=== PATIENT | male | born 1985 | race African-American/Black ===

== ENCOUNTER 2021-03-21 21:18 | Emergency (ER) | payer OTHER ==
[~2021-03-21] VITALS: Ht 188 cm; Wt 77.1 kg
--- NOTE | 2021-03-21 21:50 | NUR ---
Patient walked into ER c/o being irratable, fatigue that started 2 days ago after quiting smoking 4 days ago.
--- NOTE | 2021-03-21 21:57 | NUR ---
Dr. Malcolm on bedside for MSE.
[2021-03-21 22:31] LABS: HEMATOCRIT 30.4 % (36.7-47.1); MEAN CORPUSCULAR HEMOGLOBIN 27.7 uug (23.8-33.4); MEAN CORPUSCULAR VOLUME 83.6 fL (73.0-96.2); PLATELET COUNT (AUTO) 115 K/uL (152-348)
[2021-03-21 22:42] LABS: BILIRUBIN,DIRECT 0.1 mg/dL (0.0-0.2); BILIRUBIN,TOTAL 0.3 mg/dL (0.2-1.0); CREATININE 1.1 mg/dL (0.6-1.3); POTASSIUM 3.9 mmol/L (3.5-5.1); TOTAL PROTEIN, SERUM 9.2 g/dL (6.4-8.2)
--- NOTE | 2021-03-21 22:47 | NUR ---
Back from CT via wheelchair accompanied by technology director Deuce.
[2021-03-21 23:35] LABS: BAND % (MANUAL) 9 % (0-10); LYMPHOCYTES % (MANUAL) 15 % (20-40); MONOCYTES % (MANUAL) 6 % (2-10); NEUTROPHILS % (MANUAL) 70 % (42-75)
--- NOTE | 2021-03-22 00:20 | NUR ---
Dr. Malcolm at bedside.
--- NOTE | 2021-03-22 00:40 | NUR ---
Patient discharged to home in stable condition. Written and verbal after care instructions given. Patient verbalizes understanding of instructions. Stressed follow up or return to ER for worsening s/s. Patient ambulated from the ER with steady gait. All belongings with patient.
[2021-03-22 00:42] VITALS: BP 108/68
== END 2021-03-22 00:40 | disposition home or self-care (01) ==
LOC: ER 21:18
DX: R50.9 Fever, unspecified (principal); R10.9 Unspecified abdominal pain; Z20.822 Contact with and (suspected) exposure to COVID-19; F17.210 Nicotine dependence, cigarettes, uncomplicated
CPT/HCPCS: 36415; 70030-TC; 70450; 71045; 83605; 85025; 87040; 87400; A4663

== ENCOUNTER 2021-03-23 20:40 | Inpatient (IN) | payer OTHER ==
[~2021-03-23] VITALS: Ht 188 cm; Wt 68.2 kg
[2021-03-23] MEDS ORDERED: IV NORMAL SALINE 1000 ML BAG IV ONE (21:15)
[2021-03-23] MEDS ORDERED: ONDANSETRON 4 MG/2 ML VIAL IV ONE (21:15)
[2021-03-23 21:42] LABS: HEMATOCRIT 29.6 % (36.7-47.1); MEAN CORPUSCULAR HEMOGLOBIN 28.2 uug (23.8-33.4); MEAN CORPUSCULAR VOLUME 84.1 fL (73.0-96.2); PLATELET COUNT (AUTO) 112 K/uL (152-348)
[2021-03-23] MEDS ORDERED: ONDANSETRON 4 MG/2 ML VIAL ONE (21:46)
[2021-03-23 21:47] LABS: CREATININE 1.3 mg/dL (0.6-1.3); POTASSIUM 4.1 mmol/L (3.5-5.1)
[2021-03-23 21:52] LABS: BILIRUBIN,DIRECT 0.1 mg/dL (0.0-0.2); BILIRUBIN,TOTAL 0.4 mg/dL (0.2-1.0)
[2021-03-23] MEDS ORDERED: AZITHROMYCIN IV 500 MG in IV DEXTROSE 5% 250 ML IV SCH (22:45)
[2021-03-23] MEDS ORDERED: CEFTRIAXONE 1 G in IV DEXTROSE 5% 50 ML IV ONE (22:45)
[2021-03-23] MEDS ORDERED: IV NS 1000 ML 1,000 ML IV ONE (22:45)
[2021-03-23] MEDS ORDERED: HYDROMORPHONE 1 MG/1 ML DISP.SYRIN IV ONE (23:00)
[2021-03-23] MEDS ORDERED: CEFTRIAXONE /D5W 50ML IVPB **ER PYXIS IV ONE (23:02)
--- NOTE | 2021-03-23 23:03 | NUR ---
Called [facility] to page Tamir Perera NP.
[2021-03-23] MEDS ORDERED: SULFAMETHOXAZOL/TRIMETHOPRI IV 15 ML in IV DEXTROSE 5% 250 ML IV ONE (23:15)
[2021-03-23] MEDS ORDERED: HYDROMORPHONE 1 MG/1 ML DISP.SYRIN ONE (23:16)
--- NOTE | 2021-03-23 23:23 | NUR ---
Dr. Rao panel call, speaking with Tamir Perera, accpeted for admission.
--- NOTE | 2021-03-23 23:23 | NUR ---
Called for bed, given [phone]
[2021-03-23] MEDS ORDERED: AZITHROMYCIN 500MG/ D5W 250ML IVPB **ER PYXIS ONLY IV ONE (23:33)
[2021-03-24] MEDS ORDERED: IV NS 1000 ML 1,000 ML IV PRN (00:15)
[2021-03-24] MEDS ORDERED: MAGNESIUM HYDROXIDE 30 ML LIQUID UDC PO PRN (00:15)
[2021-03-24] MEDS ORDERED: SULFAMETHOXAZOLE/TRIMETHOPRIM 10 ML VIAL IV ONE (00:45)
--- NOTE | 2021-03-24 01:04 | NUR ---
Gave report to Juhi ASHER
[2021-03-24 01:37] VITALS: BP 111/72
[2021-03-24] MEDS: HYDROCODONE/APAP 5-325MG TABLET PO PRN ×4 (01:39→23:56)
[2021-03-24] MEDS: ACETAMINOPHEN 325 MG TABLET PO PRN ×2 (01:39→23:54)
[2021-03-24] MEDS: ENOXAPARIN SODIUM 40 MG/0.4 ML DISP.SYRIN SQ SCH ×2 (01:40→20:26)
--- NOTE | 2021-03-24 01:55 | NUR ---
Received patient on unit at 01:15AM via [employer]. AOX4. Established nurse-patient rapport. Oriented patient to room and call light button. IV site is on L AC 20gauge, started on 0.9% NS running at 75/mls. On room air, saturating at 95%. Patient attached to cardiac monitor technician, showing normal sinus rhythm. Patient came in with fever, having temperature of 102.2, tylenol was given and cooling measure was initiated. Patient denies SOB or dizziness but reports moderate back pain, Milo 5-325mg, was given and tolerated. Safety and comfort measures initiated. Will continue to monitor.
[2021-03-24 04:03] VITALS: BP 96/44
[2021-03-24] MEDS: PANTOPRAZOLE SODIUM 40 MG TABLET.DR PO SCH (06:16)
--- NOTE | 2021-03-24 06:41 | NUR ---
Pt slept intermittently through the night. All comfort measures were given to lower down fever, temperature currently at 99.7. from previous temperature of 101. IV site remains patent and intact. On cardiac monitor technician, showing normal sinus rhythm with HR of 87bpm. Will endorse to day shift nurse.
--- NOTE | 2021-03-24 08:00 | NUR ---
AWAKE ALERT AND VERBALLY RESPONSIVE PLEASANT AND ABLE TO COMMUNICATE NEEDS. CONTINUE WITH TELE MONITORING ST ON MONITOR
[2021-03-24 08:24] LABS: HEMATOCRIT 29.3 % (36.7-47.1); MEAN CORPUSCULAR VOLUME 84.5 fL (73.0-96.2); PLATELET COUNT (AUTO) 112 K/uL (152-348)
[2021-03-24] MEDS ORDERED: AZITHROMYCIN IV 500 MG in IV DEXTROSE 5% 250 ML IV SCH (09:00)
[2021-03-24] MEDS ORDERED: CEFTRIAXONE 1 G in IV DEXTROSE 5% 50 ML IV SCH ×2 (09:00→23:00)
[2021-03-24 09:07] LABS: CREATININE 1.3 mg/dL (0.6-1.3); MAGNESIUM 2.1 mg/dL (1.8-2.4)
[2021-03-24] MEDS ORDERED: ALBUTEROL SULFATE 2.5 MG/3 ML NEBU NEB PRN (10:30)
[2021-03-24 10:59] VITALS: BP 110/63
--- NOTE | 2021-03-24 11:00 | NUR ---
SEEN BY DR BROWER AND DR RAMSEY SEE NOTES
[2021-03-24] MEDS: IV D5/ 0.9% NACL 1,000 ML IV SCH ×2 (11:25→20:32)
[2021-03-24] MEDS: CLOTRIMAZOLE 10 MG TROCHE MM SCH ×3 (13:06→20:25)
[2021-03-24 13:26] LABS: *BILIRUBIN,URIN NEGATIVE (NEGATIVE); *BLOOD, URINE NEGATIVE (NEGATIVE); *CLARITY,URINE CLEAR (CLEAR); *COLOR,URINE LIGHT YELLOW (YELLOW); *KETONES,URINE NEGATIVE (NEGATIVE); *UROBILINOGEN,URINE 0.2 E.U./dl (NORMAL); LEUKOCYTE ESTERASE ,URINE NEGATIVE (NEGATIVE); NITRITE, URINE NEGATIVE (NEGATIVE); PH,URINE 6.5 (5.0-8.0); UGLUCOSE NEGATIVE (NEGATIVE)
[2021-03-24 14:55] VITALS: BP 107/72
--- NOTE | 2021-03-24 18:16 | NUR ---
PATIENT REMAINS AFEBRILE ALL DAY, STILL WITH ON AND OFF MILDLY PRODUCTIVE COUGH. SPUTUM C/S AND PCR AAA SENT TO LAB. REMAINS SR/ ST ON MONITOR. CONTINUE PAIN MANAGEMENT NORCO FOR BACK PAIN
--- NOTE | 2021-03-24 19:30 | NUR ---
Received patient lying on bed. AOX4. No acute distress noted at this time. Patient is afebrile. IV site on L AC intact and patent with no signs of redness or swelling noted. Safety and comfort measures initiated.
[2021-03-24 20:18] VITALS: BP 106/63
--- NOTE | 2021-03-24 22:15 | NUR ---
Patient picked up by X-ray auto repair technician, Kam, for CT-Chest X-ray without contrast.
[2021-03-24] MEDS ORDERED: ZOLPIDEM 5 MG TABLET PO PRN (22:30)
--- NOTE | 2021-03-24 22:35 | NUR ---
Patient is back from X-ray unit.
[2021-03-24] MEDS: AZITHROMYCIN IV 500 MG in IV DEXTROSE 5% 250 ML IV SCH (23:55)
[2021-03-25] MEDS ORDERED: CEFTRIAXONE 1 G in IV DEXTROSE 5% 50 ML IV SCH
[2021-03-25 00:11] VITALS: BP 109/67
[2021-03-25 04:27] VITALS: BP 110/61
[2021-03-25] MEDS: PANTOPRAZOLE SODIUM 40 MG TABLET.DR PO SCH (06:13)
[2021-03-25] MEDS: IV D5/ 0.9% NACL 1,000 ML IV SCH (06:13)
--- NOTE | 2021-03-25 06:40 | NUR ---
Patients oxygen rechecked, satting 92% on RA. Placed on 2L NC
--- NOTE | 2021-03-25 07:08 | NUR ---
Pt slept through the night. Tylenol was given to relieve elevated temperature, pt now afebrile. [place] 5-325mg PO was given to relieve reported upper back pain, pt tolerated well. On user support analyst supervisor, showing normal sinus rhythm. On O2 2L, saturating at 99%. IV on L AC is patent and intact, infusing D5/0.9%NaCl 1000ml, running at 100ml/hr. All needs attended to and met. Will endorse to day shift nurse.
[2021-03-25 07:52] LABS: BILIRUBIN,TOTAL 0.3 mg/dL (0.2-1.0); CREATININE 1.1 mg/dL (0.6-1.3); MAGNESIUM 2.4 mg/dL (1.8-2.4); PHOSPHOROUS 2.3 mg/dL (2.5-4.9); POTASSIUM 3.7 mmol/L (3.5-5.1); TOTAL PROTEIN, SERUM 8.4 g/dL (6.4-8.2)
[2021-03-25 08:29] LABS: HEMATOCRIT 27.4 % (36.7-47.1); MEAN CORPUSCULAR HEMOGLOBIN 27.7 uug (23.8-33.4); MEAN CORPUSCULAR VOLUME 83.8 fL (73.0-96.2); PLATELET COUNT (AUTO) 120 K/uL (152-348)
[2021-03-25] MEDS ORDERED: CEFTRIAXONE 2 G VIAL IM SCH ×2 (09:00)
[2021-03-25 09:15] VITALS: BP 110/62
--- NOTE | 2021-03-25 09:45 | NUR ---
Received pt. Pt is currently awake in bed. a/o x 4 saturating 99% on 2L NC, sinus on telemetry. Pt is cooperative with care, ambulates to bathroom, IV is intact and patent. PCR for Covid still pending. Pt takes medications as directed. Pt's current vitals BP 110/62, HR 90, Temp 100.5. Acetaminophen administered. All comfort measures provided, call light in reach. Will continue to monitor pt.
[2021-03-25] MEDS: CLOTRIMAZOLE 10 MG TROCHE MM SCH ×4 (10:03→20:31)
[2021-03-25] MEDS: CEFTRIAXONE 2 G in IV DEXTROSE 5% 100 ML IV SCH (10:03)
[2021-03-25] MEDS: ACETAMINOPHEN 325 MG TABLET PO PRN ×2 (10:53→17:57)
[2021-03-25 11:02] VITALS: BP 119/65
[2021-03-25 15:07] VITALS: BP 114/58
[2021-03-25] MEDS ORDERED: NEUTRA PHOS PACKET PO ONE (16:15)
[2021-03-25] MEDS ORDERED: SULFAMETHOXAZOL/TRIMETHOPRI IV 20 ML in IV DEXTROSE 5% 500 ML IV SCH ×3 (17:00→22:00)
--- NOTE | 2021-03-25 17:45 | NUR ---
Titrated pt from 2 L to Room air. Pt is saturating 97% on pulse ox. Pt is shivering, temperature of 100.0, administered acetaminophen. Will reassess pt.
--- NOTE | 2021-03-25 18:37 | NUR ---
Pt is currently stable on room air, saturating in the mid-high 90s. NO signs of acute distress or discomfort. Provided comfort measures, all medications tolerated well. Sent in respiratory pathogen specimen to lab. Reassessed pt's temperature, now trending downward at 99.7F. Will endorse to propulsion systems engineer RN to reassess and monitor.
--- NOTE | 2021-03-25 19:30 | NUR ---
RECEIVED PT AWAKE, ALERT AND ORIENTEDX4. PT ON ROOM AIR. PT IN NO ACUTE DISTRESS. IV INTACT. SAFETY AND COMFORT PROVIDED. WILL CONTINUE TO MONITOR.
[2021-03-25 20:27] VITALS: BP 113/62
--- NOTE | 2021-03-25 23:00 | NUR ---
AMBIEN 5MG PRN GIVEN AT 2246 H FOR SLEEP PER PT REQUEST. WILL CONTINUE TO MONITOR.
[2021-03-25] MEDS: AZITHROMYCIN IV 500 MG in IV DEXTROSE 5% 250 ML IV SCH (23:19)
[2021-03-25] MEDS: ENOXAPARIN SODIUM 40 MG/0.4 ML DISP.SYRIN SQ SCH (23:38)
[2021-03-26 00:21] VITALS: BP 107/66
[2021-03-26] MEDS: HYDROCODONE/APAP 5-325MG TABLET PO PRN (01:39)
--- NOTE | 2021-03-26 03:18 | NUR ---
AT 0139H NORCO 1 TABLET PRN GIVEN PER PT REQUEST FOR GENERALIZED PAIN AND FOR SLEEP. WILL CONTINUE TO MONITOR.
[2021-03-26 04:30] VITALS: BP 109/57
--- NOTE | 2021-03-26 05:34 | NUR ---
PT SLEPT INTERMITTENTLY. PT IN NO ACUTE DISTRESS. PT IV INTACT. PT ON SINUS RHYTHM. PT ON ROOM AIR .PT AFEBRILE. SAFETY AND COMFORT PROVIDED. ALL NEEDS ARE MET. WILL ENDORSE FOR CONTINUITY OF CARE.
[2021-03-26] MEDS ORDERED: TRIMETHOPRI IV SCH ×2 (06:00→15:00)
[2021-03-26] MEDS ORDERED: SULFAMETHOXAZOL IV SCH ×2 (06:00→15:00)
[2021-03-26] MEDS ORDERED: DEXTROSE IV SCH ×2 (06:00→15:00)
[2021-03-26] MEDS: PANTOPRAZOLE SODIUM 40 MG TABLET.DR PO SCH (06:04)
[2021-03-26 08:00] VITALS: BP 127/73
--- NOTE | 2021-03-26 08:00 | NUR ---
Pt received to care awake, A/O x4. NO SOB, pt is on room air. Left AC heplock, TKO running. Pt is able to state his needs. No distress noted.
[2021-03-26 08:19] LABS: CREATININE 0.9 mg/dL (0.6-1.3); PHOSPHOROUS 2.9 mg/dL (2.5-4.9); POTASSIUM 3.4 mmol/L (3.5-5.1)
[2021-03-26 08:42] LABS: HEMATOCRIT 25.2 % (36.7-47.1); MEAN CORPUSCULAR HEMOGLOBIN 27.8 uug (23.8-33.4); MEAN CORPUSCULAR VOLUME 83.8 fL (73.0-96.2); PLATELET COUNT (AUTO) 136 K/uL (152-348)
[2021-03-26] MEDS: CLOTRIMAZOLE 10 MG TROCHE MM SCH ×4 (09:52→20:30)
[2021-03-26] MEDS: CEFTRIAXONE 2 G in IV DEXTROSE 5% 100 ML IV SCH (09:52)
[2021-03-26] MEDS ORDERED: POTASSIUM CHLORIDE 20 MEQ TAB.PRT.SR PO ONE (10:00)
[2021-03-26 11:40] VITALS: BP 115/66
[2021-03-26] MEDS: ACETAMINOPHEN 325 MG TABLET PO PRN ×2 (12:06→20:25)
--- NOTE | 2021-03-26 15:00 | NUR ---
Pt reported that the lab technichian did not apply alcohol before drawing lab. Pt stated that he would likes to have a different tech drawing his lab tomorrow. Spoke with the lab suppervisor who stated that she will ask the [facility] shift tech to come in am, if able.
--- NOTE | 2021-03-26 15:45 | NUR ---
Pt's PCR is negative. Consulted dr. Green regarding taking the patient off isolation, order to D/C isolation received. Pt was moved to room 301B.
[2021-03-26 15:54] VITALS: BP 128/77
[2021-03-26] MEDS ORDERED: SULFAMETHOXAZOL/TRIMETHOPRI IV 20 ML in IV DEXTROSE 5% 500 ML IV SCH (16:52)
[2021-03-26] MEDS: ONDANSETRON 4 MG/2 ML VIAL IV PRN (17:51)
--- NOTE | 2021-03-26 18:33 | NUR ---
Pt c/o nausea, small amount of liquid emesis present. PRN Zofran 4 mg IVP was given at 1751. Pt says he is less nauseas, prn is effective.
[2021-03-26 19:01] LABS: *BILIRUBIN,URIN NEGATIVE (NEGATIVE); *BLOOD, URINE NEGATIVE (NEGATIVE); *CLARITY,URINE CLEAR (CLEAR); *COLOR,URINE YELLOW (YELLOW); *KETONES,URINE 1+ (NEGATIVE); LEUKOCYTE ESTERASE ,URINE NEGATIVE (NEGATIVE); NITRITE, URINE NEGATIVE (NEGATIVE); PH,URINE 8.5 (5.0-8.0); UGLUCOSE NEGATIVE (NEGATIVE)
--- NOTE | 2021-03-26 19:30 | NUR ---
RECEIVED PT AWAKE, ALERT AND ORIENTEDX4. PT IN NO ACUTE DISTRESS. PT ON ROOM AIR. SAFETY AND COMFORT PROVIDED. WILL CONTINUE TO MONITOR.
--- NOTE | 2021-03-26 19:45 | NUR ---
NOTIFY DR. RAMSEY REGARDING PT STILL FEEL NAUSEOUS AND REQUEST TO INCREASE DOSAGE OF AMBIEN. DR. LOPEZ ORDERED AMBIEN 10MG AND REGLAN FOR PT.
[2021-03-26 20:00] VITALS: BP 124/73
[2021-03-26] MEDS: ENOXAPARIN SODIUM 40 MG/0.4 ML DISP.SYRIN SQ SCH (20:30)
[2021-03-26] MEDS: METOCLOPRAMIDE HCL 10 MG/2 ML VIAL IV PRN (20:59)
[2021-03-26] MEDS: SULFAMETHOXAZOL/TRIMETHOPRI IV 20 ML in IV DEXTROSE 5% 500 ML IV SCH (21:00)
--- NOTE | 2021-03-26 22:59 | NUR ---
HANDS OFF REPORT TO ISA ASHER. PT STABLE.
--- NOTE | 2021-03-26 23:00 | NUR ---
Received patient lying in bed. AAOx4. In no apparent distress. Denies any pain or SOB. IV site on left AC intact and patent. Sinus tachy on tele with HR of 106/min. Needs assessed and attended to. Safety measure maintained and call russell within reached.
[2021-03-26] MEDS: ZOLPIDEM 5 MG TABLET PO PRN (23:07)
[2021-03-26] MEDS: AZITHROMYCIN IV 500 MG in IV DEXTROSE 5% 250 ML IV SCH (23:26)
[2021-03-27 04:00] VITALS: BP 101/58
[2021-03-27] MEDS: SULFAMETHOXAZOL/TRIMETHOPRI IV 20 ML in IV DEXTROSE 5% 500 ML IV SCH ×3 (05:41→21:32)
[2021-03-27] MEDS: METOCLOPRAMIDE HCL 10 MG/2 ML VIAL IV PRN (05:41)
[2021-03-27 05:52] LABS: HEMATOCRIT 29.6 % (36.7-47.1); PLATELET COUNT (AUTO) 182 K/uL (152-348)
[2021-03-27 06:00] LABS: CREATININE 1.1 mg/dL (0.6-1.3); MAGNESIUM 1.9 mg/dL (1.8-2.4); PHOSPHOROUS 3.8 mg/dL (2.5-4.9); POTASSIUM 3.9 mmol/L (3.5-5.1)
[2021-03-27] MEDS: PANTOPRAZOLE SODIUM 40 MG TABLET.DR PO SCH (06:03)
--- NOTE | 2021-03-27 06:14 | NUR ---
AAOx4. In no acute distress. Denies any pain or SOB. IV site on left AC intact and patent. No adverse reaction noted from IV antibiotics. Vomited x1 and given Reglan IV and effective. Needs attended to and met. Safety measure maintained and call russell within reached.
[2021-03-27] MEDS: ONDANSETRON 4 MG/2 ML VIAL IV PRN ×2 (08:53→19:45)
[2021-03-27] MEDS: CEFTRIAXONE 2 G in IV DEXTROSE 5% 100 ML IV SCH (08:58)
[2021-03-27] MEDS: CLOTRIMAZOLE 10 MG TROCHE MM SCH ×4 (08:58→20:16)
--- NOTE | 2021-03-27 09:41 | NUR ---
received in bed awake watching tv. no acute distress noted. denies pain or sob. c/o nausea no vomiting, slightly relieved by zofran as verbalized. iv is intact and patent. pt is comfortably resting. bed at lowest siderails up x2. call light and personal belongings in reach. will cont to monitor.
[2021-03-27 11:19] VITALS: BP 114/64
[2021-03-27 15:06] VITALS: BP 102/64
--- NOTE | 2021-03-27 18:30 | NUR ---
pt in the room is visiting. no acute distress. denies sob/chest pain. on iv atb rocephin/bactrim no adverse/allergic reaction noted. pt is comfortable. safety measures kept in place. needs attended.
[2021-03-27 20:00] VITALS: BP 114/66
[2021-03-27] MEDS: ENOXAPARIN SODIUM 40 MG/0.4 ML DISP.SYRIN SQ SCH (20:13)
[2021-03-27] MEDS: ZOLPIDEM 5 MG TABLET PO PRN (21:49)
[2021-03-27] MEDS: AZITHROMYCIN IV 500 MG in IV DEXTROSE 5% 250 ML IV SCH (23:23)
[2021-03-28] MEDS: ACETAMINOPHEN 325 MG TABLET PO PRN (03:29)
[2021-03-28 04:00] VITALS: BP 112/67
[2021-03-28] MEDS: SULFAMETHOXAZOL/TRIMETHOPRI IV 20 ML in IV DEXTROSE 5% 500 ML IV SCH ×2 (05:27→14:32)
[2021-03-28] MEDS: PANTOPRAZOLE SODIUM 40 MG TABLET.DR PO SCH (06:07)
--- NOTE | 2021-03-28 06:33 | NUR ---
No significant event reported all night. Slept good. No complaint presented. VS stable. Continue care as planned.
--- NOTE | 2021-03-28 06:40 | NUR ---
Continue on antibiotic without any s/s of adverse reaction noted. No complaint presented throughtout the night. Ambulating in the hallways when able. Continue care as planned.
[2021-03-28 06:49] LABS: HEMATOCRIT 23.9 % (36.7-47.1); MEAN CORPUSCULAR HEMOGLOBIN 27.8 uug (23.8-33.4); MEAN CORPUSCULAR VOLUME 83.1 fL (73.0-96.2); PLATELET COUNT (AUTO) 169 K/uL (152-348)
[2021-03-28 07:24] LABS: MAGNESIUM 1.7 mg/dL (1.8-2.4); PHOSPHOROUS 3.8 mg/dL (2.5-4.9); POTASSIUM 4.1 mmol/L (3.5-5.1)
[2021-03-28 07:32] LABS: NEUTROPHILS % (MANUAL) 0 % (42-75)
[2021-03-28] MEDS: CEFTRIAXONE 2 G in IV DEXTROSE 5% 100 ML IV SCH (09:17)
[2021-03-28] MEDS: CLOTRIMAZOLE 10 MG TROCHE MM SCH ×2 (09:17→14:17)
[2021-03-28] MEDS: ONDANSETRON 4 MG/2 ML VIAL IV PRN (09:35)
--- NOTE | 2021-03-28 09:45 | NUR ---
Pt is awake alert/oriented x 4. stable on room air, ambulatory and independent with ADLs. Pt takes all medications, tolerated well with some nausea. Administered Zofran before next due antibiotic and provided snacks (crackers). Pt Iv is intact, patent. Pt has a slight cough due to Pneumonia but sputum is clear/white and small amount. Pt is not in any acute distress or discomfort at this time. Will continue to monitor.
[2021-03-28] MEDS ORDERED: IV NS 1000 ML 1,000 ML IV ONE (10:45)
[2021-03-28] MEDS ORDERED: MAGNESIUM OXIDE 400 MG TABLET PO ONE (11:00)
[2021-03-28 11:54] VITALS: BP 105/81
[2021-03-28] MEDS: METOCLOPRAMIDE HCL 10 MG/2 ML VIAL IV PRN (14:32)
[2021-03-28] MEDS ORDERED: SULF1TAB47 PO (15:06)
[2021-03-28] MEDS ORDERED: ONDA4TAB5 PO (15:06)
[2021-03-28] MEDS ORDERED: CLOT10TR6 MM (15:06)
[2021-03-28] MEDS ORDERED: LEVO750T46 PO (15:06)
[2021-03-28] MEDS ORDERED: PANT40TA49 PO (15:06)
[2021-03-28 16:00] VITALS: BP 123/77
--- NOTE | 2021-03-28 16:50 | NUR ---
Pt discharged, left with by private car to their home. Pt is a/o x 4, ambulatory, all education and material given to pt and in room. IV removed, valuables and instructions at hand. Pt was wheelchaired down to private car. Pt was stable, in no sign of acute distress, no complaint of nausea or pain at time of discharge.
[2021-03-28 18:06] LABS: COCCIDIOIDES CF SERUM Negative (Neg:<1:2)
== END 2021-03-28 17:20 | disposition home or self-care (01) | DRG 871 ==
LOC: ER 20:41 → TELE3 03-24 01:06 → MEDSURG3 03-26 23:26
PROVIDERS: ADMIT Internal Medicine; ATTEND Registered Nurse
DX: A41.9 Sepsis, unspecified organism (principal); N17.0 Acute kidney failure with tubular necrosis; J18.9 Pneumonia, unspecified organism; E87.1 Hypo-osmolality and hyponatremia; E44.0 Moderate protein-calorie malnutrition; D61.818 Other pancytopenia; Z68.1 Body mass index [BMI] 19.9 or less, adult; B25.9 Cytomegaloviral disease, unspecified; F17.211 Nicotine dependence, cigarettes, in remission; Z20.822 Contact with and (suspected) exposure to COVID-19; E86.1 Hypovolemia; F12.90 Cannabis use, unspecified, uncomplicated; F17.210 Nicotine dependence, cigarettes, uncomplicated; Z82.49 Family history of ischemic heart disease and other diseases of the circulatory system; Z83.3 Family history of diabetes mellitus; D69.59 Other secondary thrombocytopenia
CPT/HCPCS: 36415; 70030-TC; 71045; 71250; 83550; 83605; 83615; 83735; 84100; 85025; 85730; 86140; 86480; 86644; 86645; 87040; 87070; 87086; 87278; 87496; 87536; 87806; 93005; A4663; G0378; J0456; J0696; J1170; J1650; J2405; J2765; J3490; J7030; J7042; J7060; J7070; U0003